=== PATIENT | male | born 1960 | race Caucasian/White ===

== ENCOUNTER → 2023-04-23 08:56 | Outpatient (REF) | payer BC, SELFPAY ==
[2023-04-25 21:14] LABS: 24 Hour Urine Total Volume 2500 mL; Ur Free Lambda Excretion/day 2.92 mg/d; Urine Collection Length 24 hr; Urine Free Kappa Excretion/Day 23.28 mg/d; Urine Free Kappa Light Chains 9.31 mg/L (0.00-32.90); Urine Free Lambda Light Chains 1.17 mg/L (0.00-3.79)
== END ==
LOC: REG 08:56
PROVIDERS: ATTENDING PHYSICIAN Psychiatry & Neurology Neurology; FAMILY PHYSICIAN Physician Assistant
DX: G62.9 Polyneuropathy, unspecified (principal); G61.81 Chronic inflammatory demyelinating polyneuritis; L93.0 Discoid lupus erythematosus
CPT/HCPCS: 81050; 83521; 84156; 86335

== ENCOUNTER 2023-05-04 05:57 | Day surgery (SDC) | payer BC, SELFPAY ==
[2023-04-28 10:52] LABS: Hematocrit 42.9 % (39.0-52.0); Hemoglobin 14.6 g/dL (13.0-18.0); Mean Corpuscular Hgb 31.3 pg (27.0-31.0); Mean Corpuscular Volume 92.1 fL (80.0-94.0); Mean Platelet Volume 10.9 fL (7.4-10.4); Platelet Count 170 10^3/uL (130-400); Red Blood Cell Count 4.66 10^6/uL (4.70-6.10); Red Cell Dist. Width 13.3 % (11.5-14.5); White Blood Cell Count 5.4 10^3/uL (4.8-10.8)
[2023-04-28 11:12] VITALS: BMI 26.6
[2023-05-04] VITALS (9 sets, daily range): BP systolic 148–167; BP diastolic 72–87; BMI 26.6
[2023-05-04] MEDS: TYLENOL 1000 MG PO (06:14)
[2023-05-04] MEDS: CELEBREX 200 MG PO (06:14)
[2023-05-04] MEDS: NORMOSOL-R 1000 IV (06:27)
[2023-05-04 06:29] LABS: Glucose - Point of Care 112 mg/dl (70-99)
[2023-05-04] MEDS: DILAUDID 0.5 MG IV ×2 (08:09→08:26)
== END 2023-05-04 09:35 | disposition home or self-care (01) ==
LOC: SDS 05:57
PROVIDERS: ATTENDING PHYSICIAN Orthopaedic Surgery; FAMILY PHYSICIAN Physician Assistant; OTHER PHYSICIAN Nuclear Medicine Nuclear Cardiology
DX: T84.093A Other mechanical complication of internal left knee prosthesis, initial encounter (principal); Y83.1 Surgical operation with implant of artificial internal device as the cause of abnormal reaction of the patient, or of later complication, without mention of misadventure at the time of the procedure
CPT/HCPCS: 20680; 36415; 73560; 76000; 82962; 85027

== ENCOUNTER → 2023-06-13 14:58 | Outpatient (REF) | payer BC, SELFPAY | LOC: DHCBS MAIN 14:58 | PROVIDERS: ATTENDING PHYSICIAN Nuclear Medicine Nuclear Cardiology; FAMILY PHYSICIAN Physician Assistant | DX: I45.10 Unspecified right bundle-branch block (principal); R00.0 Tachycardia, unspecified | CPT/HCPCS: 93306 ==

== ENCOUNTER → 2023-07-05 06:47 | Outpatient (REF) | payer BC, SELFPAY | LOC: PAVMRI 06:47 | PROVIDERS: ATTENDING PHYSICIAN Psychiatry & Neurology Neurology; FAMILY PHYSICIAN Physician Assistant | DX: M54.50 Low back pain, unspecified (principal) | CPT/HCPCS: 72148 ==

== ENCOUNTER 2023-09-21 11:14 | Inpatient (IN) | payer BC, SELFPAY ==
--- NOTE | 2023-08-31 10:00 | CM ---
Patient is scheduled for lumbar spine surgery on 09/21/23. Spoke with patient prior to surgery via telephone. Introduced role of the Orthopedic Navigator. Patient reports that he lives with his and in a two story home. There is one step to enter
and 10 steps to the second floor. There is a powder room on the first floor. He currently functions independently. He has a cane and back brace. He has had VN services through [facility]. PCP is Betsy Curry.
Discussed orthopedic program, post surgical plans and tentative plan for patient to return home when directed by surgeon. Patient is in agreement with tentative plan and will have support from his when he goes home.
Plan: Orthopedic Navigator will remain available to assist with the care of patient and will reassess discharge needs after surgery.
[2023-09-02 09:03] LABS: Hematocrit 44.7 % (39.0-52.0); Hemoglobin 14.9 g/dL (13.0-18.0); Mean Corp Hgb Conc. 33.3 g/dL (33.0-37.0); Mean Corpuscular Hgb 30.7 pg (27.0-31.0); Mean Corpuscular Volume 92.2 fL (80.0-94.0); Mean Platelet Volume 10.9 fL (7.4-10.4); Platelet Count 179 10^3/uL (130-400); Red Blood Cell Count 4.85 10^6/uL (4.70-6.10); Red Cell Dist. Width 13.1 % (11.5-14.5); White Blood Cell Count 6.8 10^3/uL (4.8-10.8)
[2023-09-02 10:05] VITALS: BMI 25.2
[2023-09-02 10:27] LABS: Glycohemoglobin (HgbA1c) 6.4 % (4.0-5.6)
[2023-09-02 10:41] LABS: ALT (SGPT) 42 U/L (0-50); AST (SGOT) 33 U/L (17-59); Albumin 4.7 g/dl (3.5-5.0); Alkaline Phosphatase 82 U/L (38-126); Blood Urea Nitrogen 24 mg/dl (9-20); Calcium 9.6 mg/dl (8.4-10.2); Carbon Dioxide 26 mmol/L (22-30); Chloride 103 mmol/L (98-107); Estimated Creatinine Clearance 78 ml/min; Glucose 111 mg/dl (70-99); HDL Cholesterol 47 mg/dl; LDL Cholesterol, Calculated 123 mg/dl; Potassium 4.7 mmol/L (3.5-5.1); Sodium 138 mmol/L (135-145); Total Bilirubin 0.7 mg/dl (0.2-1.3); Total Cholesterol 190 mg/dl (50-199); Total Protein 8.8 g/dl (6.3-8.2); Triglyceride 100 mg/dl (10-149); Very Low Density Lipoprotein 20 mg/dl (0-30); eGFR > 60.00
[2023-09-02 11:26] LABS: PSA, Total - Screen 2.52 ng/ml (0.0-4.0); TSH Reflex To Free T4 1.67 uIU/ml (0.47-4.68)
[2023-09-02 14:11] VITALS: BMI 25.2
[2023-09-21] VITALS (11 sets, daily range): BP systolic 30–178; BP diastolic 68–88
[2023-09-21] MEDS: TYLENOL PO ×2 (11:55→20:17)
[2023-09-21] MEDS: LYRICA 150 MG PO (11:56)
[2023-09-21] MEDS: SKELAXIN 800 MG PO (11:56)
[2023-09-21] MEDS: CELEBREX 200 MG PO (11:56)
[2023-09-21] MEDS: TYLENOL 1000 MG PO (11:56)
[2023-09-21] MEDS: NORMOSOL-R 1000 IV ×3 (12:00→19:00)
[2023-09-21 12:11] LABS: Glucose - Point of Care 109 mg/dl (70-99)
[2023-09-21 17:02] LABS: Glucose - Point of Care 160 mg/dl (70-99)
[2023-09-21] MEDS: DILAUDID 0.5 MG IV ×4 (17:08→18:22)
[2023-09-21] MEDS: DEMEROL 12.5 MG IV ×2 (17:23→17:37)
--- NOTE | 2023-09-21 19:00 | PTCARENOTE ---
Pt arrived on at 19:00, post L3-L4 Lami, L3-L5 PSF. PT AOx3 accompanied by his spouse. Bed in a low possition, call light in reach.
[2023-09-21] MEDS: NOVOLOG FLEXPEN-MODERATE RESISTANCE SC (20:16)
[2023-09-21] MEDS: DILAUDID PO (20:17)
[2023-09-21] MEDS: COLACE 100 MG PO (20:55)
[2023-09-21] MEDS: KLONOPIN 0.5 MG PO (20:55)
[2023-09-21] MEDS: SENOKOT 17.2 MG PO (20:55)
[2023-09-21] MEDS: NORMOSOL-R IV (21:02)
[2023-09-21] MEDS: ANCEF 5 IV (22:05)
[2023-09-21] MEDS: PEPCID 20 MG PO (22:05)
[2023-09-21] MEDS: TOPROL XL 25 MG PO (22:06)
[2023-09-21 22:13] LABS: Glucose - Point of Care 247 mg/dl (70-99)
[2023-09-21] MEDS: COZAAR 25 MG PO (22:13)
[2023-09-21] MEDS: DILAUDID 4 MG PO (22:14)
[2023-09-22] MEDS: LYRICA 75 MG PO ×2 (00:09→11:13)
[2023-09-22] MEDS: TYLENOL 1000 MG PO ×3 (00:09→11:13)
[2023-09-22] MEDS: DILAUDID 4 MG PO ×4 (01:02→13:24)
--- NOTE | 2023-09-22 03:00 | PTCARENOTE ---
Pt retaining urine after voiding 600 mL, SC pt output 1800 included by PCT as voided
[2023-09-22 03:25] VITALS: BP 138/65
[2023-09-22] MEDS: SKELAXIN 800 MG PO (03:35)
[2023-09-22] MEDS: ANCEF 5 IV (05:18)
[2023-09-22] MEDS: NORMOSOL-R 1000 IV (05:21)
[2023-09-22 06:16] VITALS: BMI 26.7
[2023-09-22 06:24] LABS: Hemoglobin 12.4 g/dL (13.0-18.0)
[2023-09-22 07:02] LABS: Blood Urea Nitrogen 23 mg/dl (9-20); Carbon Dioxide 23 mmol/L (22-30); Chloride 102 mmol/L (98-107); Estimated Creatinine Clearance 87 ml/min; Glucose 215 mg/dl (70-99); Potassium 4.6 mmol/L (3.5-5.1); Sodium 135 mmol/L (135-145); eGFR > 60.00
[2023-09-22 07:37] LABS: Glucose - Point of Care 200 mg/dl (70-99)
[2023-09-22 07:53] VITALS: BP 138/73
--- NOTE | 2023-09-22 08:01 | W.DS.TRANS ---
DC Summary - Verifier
-
Discharge Instructions:
Instructions:
Stand-Alone Forms: [facility]
Changes to Home Medications: No
Discharge Medications:
DC Medications w/original date entered in [employer]
acetaminophen 500 mg tablet (Tylenol Extra Strength) 1,000 mg PO PRN PRN pain 09/04/21
clonazepam 1 mg tablet 0.5 mg PO BID Mental Health/Anxiety 09/04/21
losartan 25 mg tablet 25 mg PO HS Blood Pressure 05/02/23
cyanocobalamin (vitamin B-12) 1,000 mcg/mL injection solution 1,000 mcg SC QMONTH Supplement 09/16/23
famotidine 20 mg tablet 20 mg PO HS Gastrointestinal Issue 09/16/23
immune globulin,gamma(IgG)klhw 10 gram/50 mL(20%)subcut solution (Xembify) 50 g SC UGALDE 09/16/23
lamotrigine 250 mg tablet,extended release 24 hr (Lamictal XR) 250 mg PO DAILY 09/16/23
metoprolol succinate 25 mg tablet,extended release 24 hr 25 mg PO HS Heart Disease/Condition 09/16/23
hydromorphone 4 mg tablet (Dilaudid) 4 mg PO Q6H PRN pain 09/21/23
Home Medication Changes
Pending Results: No
--- NOTE | 2023-09-22 08:01 | W.PN.SP ---
Today's Communication / Plan
-
s/p lami fusion
PT
MAy need bello to go home
PT
Pain mgmt through his pain mgmt doctor
Subjective / Objective
Subjective Data
Overall doing ok. Denies weakness.
Chronic pain issues
Trouble voiding likely secondary to that.
Objective Data
Vital Signs
Temp Pulse Resp BP Pulse Ox
97.6 F 94 18 138/73 95
09/22/23 07:53 09/22/23 07:53 09/22/23 07:53 09/22/23 07:53 09/22/23 07:53
Intake and Output
09/21/23 09/22/23 09/23/23
06:59 06:59 06:59
Intake Total 2480 / 2480
Output Total 2505 / 2505
Balance -25 / -25
Intake:
Oral fluids 1080 / 1080
IV fluids (Total) 1400 / 1400
Normosol 200 / 200
Output:
Drain Output (Total) 80 / 80
Right Lower Back Hemovac 80 / 80
Urine, Voided 2425 / 2425
Lab Data
09/22/23 05:05
09/22/23 05:05
Physical Exam
-
NO focal deficits. Generally limited by pain
[2023-09-22] MEDS: NOVOLOG FLEXPEN-MODERATE RESISTANCE 3 UNITS SC (08:10)
[2023-09-22] MEDS: KLONOPIN 0.5 MG PO (08:11)
[2023-09-22] MEDS: SENOKOT 17.2 MG PO (08:11)
[2023-09-22] MEDS: COLACE 100 MG PO (08:11)
--- NOTE | 2023-09-22 09:36 | CM ---
Reviewed chart and held rounds with PT, OT and RN. Patient had planned lumbar spine surgery with Dr. Newman on 09/20. Met with patient at bedside. Confirmed information previously obtained for assessment and discussed discharge plans. Patient continues
to plan to return home at discharge. He will have support from his when he goes home. Reviewed that he will work with PT/OT this morning and that discharge needs will depend on his functional status. However, no needs currently identified.
Patient has a cane, rolling walker, shower seat and commode.
Patient will use [facility] pharmacy for discharge prescriptions.
[2023-09-22 10:25] VITALS: BP 137/70; PULSE 88
[2023-09-22 11:19] VITALS: BP 150/73
[2023-09-22] MEDS: LASIX 10 MG IV (11:19)
[2023-09-22] MEDS: FLOMAX 0.8 MG PO (11:19)
[2023-09-22] MEDS: ProAmatine 5 MG PO (11:19)
[2023-09-22 12:10] LABS: Glucose - Point of Care 171 mg/dl (70-99)
[2023-09-22 12:12] VITALS: BP 138/69; PULSE 75; O2SAT 95
[2023-09-22] MEDS: NOVOLOG FLEXPEN-MODERATE RESISTANCE 1 UNITS SC (12:28)
--- NOTE | 2023-09-22 13:16 | W.PN.ORTHO ---
Today's Communication / Plan
-
d/c
Assessment
.
Distal Motor Intact: Yes
Dressing:
Clean, dry and intact.
Assessment:
BPH/Urinary retention-resolved, s/p Flomax, Lasix low dose
NIDDM-diet controlled-some hyperglycemia post-op-abx ppx for infection prevention w/ carb control advised
[id number] oac-NSR, HR stable
Plan
.
Surgery / Date: L3-4 lami-psf w/ inst Dr. Newman 09/21/23
Activity:
Out of bed.
PT/OT
Discharge Plan: Home
Subjective
.
.:
Patient resting comfortably.
Vital Signs and Labs
.
Vital Signs and Labs:
Lab Results
09/22/23 05:05
09/22/23 05:05
Temp Pulse Resp BP Pulse Ox
97.8 F 75 18 150/73 96
09/22/23 11:19 09/22/23 11:19 09/22/23 11:19 09/22/23 11:19 09/22/23 11:19
Physical Exam
-
HEENT: No pallor, cyanosis, or jaundice. Throat clear.
NECK: Supple. No JVD.
RESPIRATORY: Lungs clear to auscultation.
CVS: S1, S2 normal. RRR.� No murmur, rub or gallop.
ABDOMEN: Soft, non-tender. No distension. BS+/normal.
EXTREMITIES: strength equal, no calf pain with palpation
SINTERING PRESS OPERATOR: AOx3. No focal deficits. batch unit treater grossly intact
--- NOTE | 2023-09-22 13:27 | W.DS.TRANS ---
DC Summary - Cardiac Rn
-
Discharge Instructions:
Discharge Diagnosis/Procedures L3-4 lami-psf w/ inst Dr. Newman 09/21/23
Diet Diabetic, Carb Controlled
Activity No strenuous activity
Driving Restrictions No driving
Instructions:
Stand-Alone Forms: [facility]
Changes to Home Medications: Yes
Discharge Medications:
DC Medications w/original date entered in [employer]
clonazepam 1 mg tablet 0.5 mg PO BID Mental Health/Anxiety 09/04/21
losartan 25 mg tablet 25 mg PO HS Blood Pressure 05/02/23
cyanocobalamin (vitamin B-12) 1,000 mcg/mL injection solution 1,000 mcg SC QMONTH Supplement 09/16/23
famotidine 20 mg tablet 20 mg PO HS Gastrointestinal Issue 09/16/23
immune globulin,gamma(IgG)klhw 10 gram/50 mL(20%)subcut solution (Xembify) 50 g SC UGALDE 09/16/23
lamotrigine 250 mg tablet,extended release 24 hr (Lamictal XR) 250 mg PO DAILY 09/16/23
metoprolol succinate 25 mg tablet,extended release 24 hr 25 mg PO HS Heart Disease/Condition 09/16/23
hydromorphone 4 mg tablet (Dilaudid) 4 mg PO Q6H PRN pain 09/21/23
Saccharomyces boulardii 250 mg capsule (Florastor) 250 mg PO BID #1 cap 09/22/23
acetaminophen 500 mg tablet (Tylenol Extra Strength) 1,000 mg (2 x 500 mg) PO QID #0 tabs 09/22/23
cephalexin 500 mg capsule 500 mg PO QID infection prevention #20 caps 09/22/23
docusate sodium 100 mg capsule (Colace) 100 mg PO BID stool softner #1 cap 09/22/23
gabapentin 300 mg capsule 300 mg PO HS sleep/pain #10 caps 09/22/23
magnesium hydroxide 400 mg/5 mL oral suspension (Milk of Magnesia) 30 ml PO HS PRN Constipation #1 mL 09/22/23
sennosides 8.6 mg tablet (Senokot) 17.2 mg (2 x 8.6 mg) PO BID laxative #2 tabs 09/22/23
tamsulosin 0.4 mg capsule 0.4 mg PO HS urinary retention #7 caps 09/22/23
Xarelto 20mg hs
Home Medication Changes
cephalexin 500 mg capsule 500 mg PO QID infection prevention #20 caps 09/22/23
gabapentin 300 mg capsule 300 mg PO HS sleep/pain #10 caps 09/22/23
tamsulosin 0.4 mg capsule 0.4 mg PO HS urinary retention #7 caps 09/22/23
Xarelto 20mg hs-hold until 09/26/23
Pending Results: No
[2023-09-22 15:11] VITALS: BP 147/69
== END 2023-09-22 15:35 | disposition home or self-care (01) | DRG 460 ==
LOC: 2 SOUTH 11:14
PROVIDERS: Physician Assistant Medical; ADMITTING PHYSICIAN Orthopaedic Surgery Orthopaedic Surgery of the Spine; FAMILY PHYSICIAN Physician Assistant
PROC: 00NY0ZZ Release Lumbar Spinal Cord, Open Approach (ICD-10-PCS; 2023-09-21)
PROC: 0SG10K1 Fusion of 2 or more Lumbar Vertebral Joints with Nonautologous Tissue Substitute, Posterior Approach, Posterior Column, Open Approach (ICD-10-PCS; 2023-09-21)
PROC: 01NB0ZZ Release Lumbar Nerve, Open Approach (ICD-10-PCS; 2023-09-21)
PROC: 0SP00AZ Removal of Interbody Fusion Device from Lumbar Vertebral Joint, Open Approach (ICD-10-PCS; 2023-09-21)
DX: M48.061 Spinal stenosis, lumbar region without neurogenic claudication (principal); N40.1 Benign prostatic hyperplasia with lower urinary tract symptoms; I48.0 Paroxysmal atrial fibrillation; R33.8 Other retention of urine; E11.65 Type 2 diabetes mellitus with hyperglycemia; I10 Essential (primary) hypertension; E11.42 Type 2 diabetes mellitus with diabetic polyneuropathy; E78.5 Hyperlipidemia, unspecified; F17.210 Nicotine dependence, cigarettes, uncomplicated; I45.10 Unspecified right bundle-branch block; G47.33 Obstructive sleep apnea (adult) (pediatric); F41.9 Anxiety disorder, unspecified; Z82.49 Family history of ischemic heart disease and other diseases of the circulatory system
CPT/HCPCS: 36415; 72100; 76000; 80048; 80053; 80061; 82962; 83036; 84443; 85014; 85018; 85027; 87070; 93005; 97163; 97166; G0103

== ENCOUNTER 2023-11-11 12:59 | Outpatient (RCR) | payer BC, SELFPAY | END 2023-11-11 23:59 | disposition home or self-care (01) | LOC: RPT 12:59 | PROVIDERS: ATTENDING PHYSICIAN Orthopaedic Surgery Orthopaedic Surgery of the Spine; FAMILY PHYSICIAN Physician Assistant | DX: Z47.89 Encounter for other orthopedic aftercare (principal); M48.061 Spinal stenosis, lumbar region without neurogenic claudication | CPT/HCPCS: 97110; 97112; 97162 ==

== ENCOUNTER 2023-12-07 10:18 | Outpatient (RCR) | payer BC, SELFPAY | END 2023-12-07 23:59 | disposition home or self-care (01) | LOC: RPT 10:18 | PROVIDERS: ATTENDING PHYSICIAN Orthopaedic Surgery Orthopaedic Surgery of the Spine; FAMILY PHYSICIAN Physician Assistant | DX: M48.061 Spinal stenosis, lumbar region without neurogenic claudication (principal); Z73.6 Limitation of activities due to disability | CPT/HCPCS: 97010; 97110; 97112 ==

== ENCOUNTER → 2023-12-14 10:49 | Outpatient (REF) | payer BC, SELFPAY | LOC: HWRAD 10:49 | PROVIDERS: ATTENDING PHYSICIAN Physician Assistant Surgical; FAMILY PHYSICIAN Physician Assistant | DX: M48.062 Spinal stenosis, lumbar region with neurogenic claudication (principal); M54.50 Low back pain, unspecified | CPT/HCPCS: 72131 ==

== ENCOUNTER 2024-01-02 11:51 | Emergency (ER) | payer BC, SELFPAY ==
[2024-01-02 11:59] VITALS: BP 126/69
[2024-01-02 12:33] VITALS: BMI 25.7
[2024-01-02 12:34] VITALS: BP 139/71
--- NOTE | 2024-01-02 12:44 | ED.GENMED ---
History of Present Illness
General
Chief Complaint: Heart Rate Problem
Time Seen by Provider: 01/02/24 12:28
History of Present Illness
History of Present Illness:
63-year-old male presents to the emergency department for evaluation of heart palpitations and shortness of breath that began last night. Began while he was walking. States his heart rate was variable between 70 and 150, his Apple Watch was
detecting A-fib. Last night he took an extra dose of 25 mg metoprolol succinate. This morning symptoms continued thus he came to the emergency department but noted resolution of symptoms on arrival to the ER. Currently denies any chest pain or
shortness of breath. He is not currently anticoagulated
Past History
Past History
ED Past Medical History: Asthma, HTN, NIDDM and Other
ED Past Surgical History: Orthopedic
Social History
Tobacco: Smoker
Alcohol: Occasional
Drug: None
Personal:
Living: with family
Employment: Employed
Family History
Family History: Other
Review of Systems
Review of Systems
Allergies reviewed?: Yes
All Other Systems: ROS reviewed and negative except as documented in HPI and ROS
Phy Exam
Physical Exam
Physical Exam:
GEN: Well appearing, NAD, WDWN
HEENT: Oral mucosa moist, no scleral icterus
Cardiac: Regular rate and rhythm, no murmurs
Lung: No respiratory distress, no tachypnea, lungs clear to auscultation bilaterally
MSK: No gross deformity or injuries
Skin: Good color, no pallor or jaundice, no rashes
Neuro: AO x3, moves all extremities freely
Psych: Calm, cooperative
Course
Orders/Labs/Results
Orders:
Orders
01/02/24 11:52
Electrocardiogram (*1) Urgent
Reason for Study: Chest Pain
EKG- Treatment ONCE
Vital Signs
Initial and Last Documented VS:
Initial Vital Signs
Temp Pulse Resp BP Pulse Ox
97.9 F 86 18 126/69 97
01/02/24 11:59 01/02/24 11:59 01/02/24 11:59 01/02/24 11:59 01/02/24 11:59
Last Documented Vital Signs
Temp Pulse Resp BP Pulse Ox
97.9 F 78 18 139/71 98
01/02/24 11:59 01/02/24 12:45 01/02/24 12:45 01/02/24 12:34 01/02/24 12:45
MDM/Problems Addressed
MDM/Problems Addressed:
Patient nandini in normal sinus rhythm in the emergency department. Will increase his metoprolol to 50 mg daily, given that he has had 2 bouts of documented A-fib in the past 2 to 3 months we will start him on oral anticoagulants and advise close
cardiology follow-up
Comment
Comment:
EKG independently interpreted by me shows normal sinus rhythm at a rate of 80 with a right bundle branch block
*Critical Care Note
Total Time (30-74mins, 75-104mins- exclusive of procedures): Not Applicable
ED Attending Note
-
Portions of this chart may have been created with voice recognition software.� Occasional wrong word or��sound alike� substitutions may have occurred due to the inherent limitations of voice recognition software.
Discharge Plan
Departure
Patient Disposition: Home (Routine Discharge)
Date of Disposition: 01/02/24
Time of Disposition: 12:54
Patient with high blood pressure during this ER visit?: No
Discharge Problem:
Paroxysmal A-fib
Instructions: Atrial Fibrillation (DC)
Prescriptions:
New
metoprolol succinate 50 mg tablet extended release 24 hr
50 mg PO DAILY Qty: 30 0RF
Eliquis 5 mg tablet
5 mg PO BID Qty: 60 0RF
Discontinued
metoprolol succinate 25 mg Tablet Extended Release 24 Hr
25 mg PO HS
Xembify 10 gram/50 mL (20 %) Solution
50 g SC UGALDE
Xarelto 20 mg Tablet
20 mg PO QPM
No Action
clonazepam 1 MG tablet
0.5 mg PO BID
losartan 25 mg Tablet
25 mg PO HS
famotidine 20 mg Tablet
20 mg PO HS
lamotrigine [Lamictal XR] 250 mg Tablet Extended Release 24hr
250 mg PO DAILY
cyanocobalamin (vitamin B-12) 1,000 mcg/mL Solution
1,000 mcg SC QMONTH
hydromorphone [Dilaudid] 4 mg Tablet
4 mg PO Q6H PRN (Reason: pain)
sennosides [Senokot] 8.6 mg tablet
17.2 mg PO BID Qty: 2 0RF
magnesium hydroxide [Milk of Magnesia] 400 mg/5 mL suspension
30 ml PO HS PRN (Reason: Constipation) Qty: 1 0RF
cephalexin 500 mg capsule
500 mg PO QID Qty: 20 0RF
docusate sodium [Colace] 100 mg capsule
100 mg PO BID Qty: 1 0RF
gabapentin 300 mg capsule
300 mg PO HS Qty: 10 0RF
Saccharomyces boulardii [Florastor] 250 mg capsule
250 mg PO BID Qty: 1 0RF
acetaminophen [Tylenol Extra Strength] 500 MG tablet
1,000 mg PO QID Qty: 0 0RF
Patient Comments:
hasnt taken in months
tamsulosin 0.4 mg capsule
0.4 mg PO HS Qty: 7 0RF
Rx Instructions:
begin 09/23/23 pm
Referrals:
Betsy Curry PA-C [Family Provider] -
Interventions
Interventions:
*Risk Screen - Suicide Last Done: 01/02/24 11:59
*Neglect/Abuse Screening Last Done: 01/02/24 11:59
ED- Fall Risk Assessment Last Done: 01/02/24 13:09
*ED COVID-19 Vaccine History Last Done: 01/02/24 11:59
*Nursing Disposition Last Done: 01/02/24 13:09
ED- Cardiac Assessment Last Done: 01/02/24 12:40
ED- Pulmonary Assessment Last Done: 01/02/24 12:40
Discharge Date and Time
Discharge Date/Time: 01/02/24 13:10
Print Language: INDONESIAN
== END 2024-01-02 13:10 | disposition home or self-care (01) ==
LOC: EMR 11:51
PROVIDERS: EMERGENCY PHYSICIAN Emergency Medicine; FAMILY PHYSICIAN Physician Assistant
DX: I48.0 Paroxysmal atrial fibrillation (principal); J45.909 Unspecified asthma, uncomplicated; I10 Essential (primary) hypertension; E11.9 Type 2 diabetes mellitus without complications; F17.200 Nicotine dependence, unspecified, uncomplicated
CPT/HCPCS: 99283; 93005

== ENCOUNTER 2024-01-05 11:53 | Outpatient (RCR) | payer BC, SELFPAY | END 2024-01-05 23:59 | disposition home or self-care (01) | LOC: RPT 11:53 | PROVIDERS: ATTENDING PHYSICIAN Physician Assistant Medical; FAMILY PHYSICIAN Physician Assistant | DX: M48.062 Spinal stenosis, lumbar region with neurogenic claudication (principal); Z73.6 Limitation of activities due to disability | CPT/HCPCS: 97110; 97112; 97162 ==

== ENCOUNTER → 2024-01-24 10:41 | Outpatient (REF) | payer BC, SELFPAY | LOC: PAVMRI 10:41 | PROVIDERS: ATTENDING PHYSICIAN Orthopaedic Surgery Orthopaedic Surgery of the Spine; FAMILY PHYSICIAN Physician Assistant | DX: M48.062 Spinal stenosis, lumbar region with neurogenic claudication (principal) | CPT/HCPCS: 72158; A9575 ==

== ENCOUNTER 2024-01-25 09:59 | Outpatient (RCR) | payer BC, SELFPAY | END 2024-01-25 23:59 | disposition home or self-care (01) | LOC: RPT 09:59 | PROVIDERS: ATTENDING PHYSICIAN Physician Assistant Medical; FAMILY PHYSICIAN Physician Assistant | DX: M48.062 Spinal stenosis, lumbar region with neurogenic claudication (principal); Z73.6 Limitation of activities due to disability | CPT/HCPCS: 97110; 97112; 97116; 97530 ==

== ENCOUNTER → 2024-03-01 07:06 | Outpatient (REF) | payer BC, SELFPAY ==
[2024-03-01 08:11] LABS: Blood Urea Nitrogen 19 mg/dl (9-20); Calcium 8.9 mg/dl (8.4-10.2); Carbon Dioxide 28 mmol/L (22-30); Chloride 101 mmol/L (98-107); Glucose 129 mg/dl (70-99); Potassium 4.4 mmol/L (3.5-5.1); Sodium 137 mmol/L (135-145); eGFR > 60.00
[2024-03-01 10:16] LABS: Lithium 0.3 mmol/L (0.6-1.2)
== END ==
LOC: REG 07:06
DX: F06.31 Mood disorder due to known physiological condition with depressive features (principal)
CPT/HCPCS: 36415; 80048; 80178

== ENCOUNTER → 2024-04-17 07:11 | Outpatient (REF) | payer BC, SELFPAY ==
[2024-04-17 08:59] LABS: Lithium 0.5 mmol/L (0.6-1.2)
== END ==
LOC: REG 07:11
PROVIDERS: ATTENDING PHYSICIAN Nurse Practitioner Psychiatric/Mental Health
DX: F39 Unspecified mood [affective] disorder (principal)
CPT/HCPCS: 36415; 80178

== ENCOUNTER 2024-05-07 11:55 | Outpatient (RCR) | payer BC, SELFPAY | END 2024-05-07 23:59 | disposition home or self-care (01) | LOC: RPT 11:55 | PROVIDERS: ATTENDING PHYSICIAN Orthopaedic Surgery Orthopaedic Surgery of the Spine; FAMILY PHYSICIAN Physician Assistant | DX: M48.062 Spinal stenosis, lumbar region with neurogenic claudication (principal); Z73.6 Limitation of activities due to disability | CPT/HCPCS: 97110; 97112; 97162; 97530 ==

== ENCOUNTER → 2024-05-21 06:32 | Outpatient (REF) | payer BC, SELFPAY ==
[2024-05-21 08:07] LABS: Blood Urea Nitrogen 14 mg/dl (9-20); Calcium 9.1 mg/dl (8.4-10.2); Carbon Dioxide 27 mmol/L (22-30); Chloride 103 mmol/L (98-107); Glucose 119 mg/dl (70-99); Potassium 4.5 mmol/L (3.5-5.1); Sodium 138 mmol/L (135-145); eGFR > 60.00
== END ==
LOC: REG 06:32
PROVIDERS: ATTENDING PHYSICIAN Nurse Practitioner Psychiatric/Mental Health; FAMILY PHYSICIAN Physician Assistant
DX: F39 Unspecified mood [affective] disorder (principal)
CPT/HCPCS: 36415; 80048; 80178

== ENCOUNTER 2024-05-29 10:58 | Outpatient (RCR) | payer BC, SELFPAY | END 2024-05-29 12:17 | disposition home or self-care (01) | LOC: RPT 10:58 | PROVIDERS: ATTENDING PHYSICIAN Orthopaedic Surgery Orthopaedic Surgery of the Spine; FAMILY PHYSICIAN Physician Assistant | DX: M48.062 Spinal stenosis, lumbar region with neurogenic claudication (principal); Z73.6 Limitation of activities due to disability; R26.89 Other abnormalities of gait and mobility; Z98.1 Arthrodesis status | CPT/HCPCS: 97110; 97112; 97530 ==

== ENCOUNTER 2024-06-27 06:36 | Emergency (ER) | payer BC, SELFPAY ==
[2024-06-27 06:39] VITALS: BP 124/70
[2024-06-27 06:52] VITALS: BP 115/69
--- NOTE | 2024-06-27 06:58 | ED.GENMED ---
History of Present Illness
General
Chief Complaint: Heart Rate Problem
Source: patient
Time Seen by Provider: 06/27/24 06:45
History of Present Illness
History of Present Illness:
This patient is a 63-year-old male who states that he was alerted that he was in A-fib at approximately 6 PM last night. He otherwise does not have symptoms to suggest that he is in A-fib. He denies palpitations, dizziness, chest pain or pressure,
dyspnea, diaphoresis, nausea, vomiting, new neck or back pain, or other symptoms. Patient has a longstanding history of neuropathy and pain which is unchanged. He noted that his phone/watch continued to alert him throughout the night with a
variable heart rate between 140s and as low as 60. He normally takes metoprolol 25 mg every night. He took it last night as usual, and then a few hours later took an extra 25 mg. He has not taken metoprolol this morning. He was concerned because
he remains in atrial fibrillation. Patient is fully anticoagulated and compliant with his medications.
Past History
Past History
ED Past Medical History: Arrthythmia, Asthma, HTN, NIDDM, Other (Neuropathy) and Other
ED Past Surgical History: Orthopedic
Social History
Tobacco: Non-smoker
Alcohol: Occasional
Drug: None
Personal:
Living: with family
Employment: Employed
Family History
Family History: Other
Phy Exam
Physical Exam
Physical Exam:
GENERAL: Alert , in no apparent distress
EYE: pupils equal and reactive
NECK: Supple, no significant adenopathy.
ENT: o/p clr, mmm.
CARDIAC: Irregularly irregular
LUNGS: Clear breath sounds bilaterally, no acute respiratory distress,
ABDOMEN: Soft, without focal tenderness, no r/g, no cvat
NEUROLOGICAL: Alert and oriented, no focal neuro deficits
SKIN: Warm and dry, skin intact.
MUSCULOSKELETAL: No edema, well perfused.
PSYCH: Normal and appropriate interaction.
Course
Orders/Labs/Results
Orders:
Orders
06/27/24 06:42
ECG [Electrocardiogram (*1)] Urgent
Reason for Study: Atrial Fibrillation
EKG- Treatment ONCE
06/27/24 07:10
Basic Metabolic Panel Urgent
Complete Blood Count/No Diff Urgent
Abnormal Lab Results
06/27/24
07:10
MCH 31.2 H pg
(27.0-31.0)
Glucose 148 H mg/dl
(70-99)
06/27/24 07:10
06/27/24 07:10
Vital Signs
Initial and Last Documented VS:
Initial Vital Signs
Temp Pulse Resp BP Pulse Ox
97.4 F 100 20 124/70 100
06/27/24 06:39 06/27/24 06:39 06/27/24 06:39 06/27/24 06:39 06/27/24 06:39
Last Documented Vital Signs
Temp Pulse Resp BP Pulse Ox
97.4 F 96 20 111/77 97
06/27/24 06:39 06/27/24 08:00 06/27/24 08:00 06/27/24 08:00 06/27/24 08:00
*Critical Care Note
Total Time (30-74mins, 75-104mins- exclusive of procedures): Not Applicable
Update Note
Update Note:
Patient presents to the Emergency Department with __A-fib that is alerted on device
Number and Complexity of Problems Addressed at the Encounter
� Chronic conditions affecting care:
� Acute Exacerbation and/or Progression of Chronic Illness:
� Differential Diagnosis includes: But not limited to A-fib, a flutter, SVT, PVCs, etc. etc.
Amount and/or Complexity of Data to be Reviewed and Analyzed
� I performed an independent evaluation of and my interpretation is:
EKG: Read by me, A-fib, right bundle branch block, no acute ischemia, unchanged from prior December 2023
CT:
Xrays:
Laboratory Studies: Generally unremarkable
Other:
� Review of other/old records reveals: Discharge summary reviewed when patient had laminectomy September 2023
� Clinical information was obtained by an independent historian:
� Prescriptions/Medications Considered but not given:
� Further testing considered but not performed:
Risk of Complications and/or Morbidity or Mortality of Patient Management
� Social determinants of health affecting care:
� Discussion with other providers (PCP, Hospitalists, Consultants, etc):
� Escalation of care including admission/observation vs risk of discharge considered: 8:34 AM patient remains in a rate controlled A-fib, asymptomatic, pleasant, well-appearing. No concerning findings on history physical or
workup here. I did reach out to his video camera operator, Dr. NIMA MALDONADO, but have not heard back. My question was concerning consideration for increasing his metoprolol dosing. I have instructed patient to contact him today for further advisement.
ED Attending Note
-
Portions of this chart may have been created with voice recognition software.� Occasional wrong word or��sound alike� substitutions may have occurred due to the inherent limitations of voice recognition software.
Discharge Plan
Departure
Patient Disposition: Home (Routine Discharge)
Date of Disposition: 06/27/24
Time of Disposition: 08:35
Patient with high blood pressure during this ER visit?: Yes
Condition: Good
Discharge Problem:
Atrial fibrillation
Instructions: Atrial Fibrillation (DC), BLOOD PRESSURE
Prescriptions:
No Action
clonazepam 1 MG tablet
0.5 mg PO BID
losartan 25 mg Tablet
25 mg PO HS
famotidine 20 mg Tablet
20 mg PO HS
lamotrigine [Lamictal XR] 250 mg Tablet Extended Release 24hr
250 mg PO DAILY
cyanocobalamin (vitamin B-12) 1,000 mcg/mL Solution
1,000 mcg SC QMONTH
hydromorphone [Dilaudid] 4 mg Tablet
4 mg PO Q6H PRN (Reason: pain)
sennosides [Senokot] 8.6 mg tablet
17.2 mg PO BID Qty: 2 0RF
magnesium hydroxide [Milk of Magnesia] 400 mg/5 mL suspension
30 ml PO HS PRN (Reason: Constipation) Qty: 1 0RF
cephalexin 500 mg capsule
500 mg PO QID Qty: 20 0RF
docusate sodium [Colace] 100 mg capsule
100 mg PO BID Qty: 1 0RF
gabapentin 300 mg capsule
300 mg PO HS Qty: 10 0RF
Saccharomyces boulardii [Florastor] 250 mg capsule
250 mg PO BID Qty: 1 0RF
acetaminophen [Tylenol Extra Strength] 500 MG tablet
1,000 mg PO QID Qty: 0 0RF
Patient Comments:
hasnt taken in months
tamsulosin 0.4 mg capsule
0.4 mg PO HS Qty: 7 0RF
Rx Instructions:
begin 09/22/ pm
metoprolol succinate 50 mg tablet extended release 24 hr
50 mg PO DAILY Qty: 30 0RF
Eliquis 5 mg tablet
5 mg PO BID Qty: 60 0RF
Referrals:
Betsy Curry PA-C [Family Provider] -
Filemon Vogel DO [Active] - Follow up in 2-3 days
Activity Restrictions/Additional Instructions:
PLEASE CONTACT YOUR SHOT COAT TENDER REGARDING FURTHER GUIDANCE FOR YOUR METOPROLOL DOSING. IF YOU DEVELOP CHEST PAIN, PALPITATIONS, DIZZINESS, SHORTNESS OF BREATH, OR OTHER WORRISOME SIGNS, PLEASE RETURN TO THE ER IMMEDIATELY.
Interventions
Interventions:
*Risk Screen - Suicide Last Done: 06/27/24 06:39
*General Assessment Last Done: 06/27/24 07:05
*Neglect/Abuse Screening Last Done: 06/27/24 06:39
*ED- Fall Risk Assessment Last Done: 06/27/24 07:05
*ED COVID-19 Vaccine History Last Done: 06/27/24 07:05
ED- Cardiac Assessment Last Done: 06/27/24 07:05
ED- Pulmonary Assessment Last Done: 06/27/24 07:05
Discharge Date and Time
Print Language: WALLISIAN
[2024-06-27 07:00] VITALS: BP 113/66
[2024-06-27 07:05] VITALS: BMI 24.4
[2024-06-27 07:21] LABS: Hematocrit 44.1 % (39.0-52.0); Hemoglobin 14.9 g/dL (13.0-18.0); Mean Corp Hgb Conc. 33.8 g/dL (33.0-37.0); Mean Corpuscular Hgb 31.2 pg (27.0-31.0); Mean Corpuscular Volume 92.5 fL (80.0-94.0); Mean Platelet Volume 10.2 fL (7.4-10.4); Platelet Count 215 10^3/uL (130-400); Red Blood Cell Count 4.77 10^6/uL (4.70-6.10); Red Cell Dist. Width 13.1 % (11.5-14.5); White Blood Cell Count 9.4 10^3/uL (4.8-10.8)
[2024-06-27 07:43] LABS: Blood Urea Nitrogen 19 mg/dl (9-20); Calcium 9.1 mg/dl (8.4-10.2); Carbon Dioxide 24 mmol/L (22-30); Chloride 106 mmol/L (98-107); Estimated Creatinine Clearance 81 ml/min; Glucose 148 mg/dl (70-99); Sodium 139 mmol/L (135-145); eGFR > 60.00
[2024-06-27 08:00] VITALS: BP 111/77
[2024-06-27 08:48] VITALS: BP 119/71
== END 2024-06-27 09:11 | disposition home or self-care (01) ==
LOC: EMR 06:36
PROVIDERS: EMERGENCY PHYSICIAN Emergency Medicine; FAMILY PHYSICIAN Physician Assistant
DX: I48.91 Unspecified atrial fibrillation (principal); J45.909 Unspecified asthma, uncomplicated; I10 Essential (primary) hypertension; E11.9 Type 2 diabetes mellitus without complications; G62.9 Polyneuropathy, unspecified; Z79.899 Other long term (current) drug therapy
CPT/HCPCS: 99283; 80048; 85027; 93005

== ENCOUNTER → 2024-06-29 07:48 | Outpatient (REF) | payer BC, SELFPAY ==
[2024-06-29 09:01] LABS: % Basophils 0.6 % (0-2); % Eosinophils 5.4 % (0-6); % Immature Granulocytes 0.5 % (0-0.5); % Lymphocytes 22.6 % (20.5-51.1); % Monocytes 10.3 % (1.7-9.3); % Neutrophils 60.6 % (42.2-75.2); Absolute Basophils 0.1 10^3/uL (0-0.2); Absolute Eosinophils 0.5 10^3/uL (0-0.7); Absolute Monocytes 0.9 10^3/uL (0.1-0.6); Absolute Neutrophils 5.3 10^3/uL (1.4-6.5); Hematocrit 43.9 % (39.0-52.0); Hemoglobin 14.1 g/dL (13.0-18.0); Mean Corp Hgb Conc. 32.1 g/dL (33.0-37.0); Mean Corpuscular Hgb 30.6 pg (27.0-31.0); Mean Corpuscular Volume 95.2 fL (80.0-94.0); Mean Platelet Volume 10.4 fL (7.4-10.4); Nucleated Red Blood Cells % 0 % (-); Platelet Count 190 10^3/uL (130-400); Red Blood Cell Count 4.61 10^6/uL (4.70-6.10); Red Cell Dist. Width 13.2 % (11.5-14.5); White Blood Cell Count 8.7 10^3/uL (4.8-10.8)
[2024-06-29 09:45] LABS: ALT (SGPT) 26 U/L (0-50); AST (SGOT) 22 U/L (17-59); Albumin 4.1 g/dl (3.5-5.0); Alkaline Phosphatase 91 U/L (38-126); Blood Urea Nitrogen 17 mg/dl (9-20); Calcium 9.6 mg/dl (8.4-10.2); Carbon Dioxide 28 mmol/L (22-30); Chloride 106 mmol/L (98-107); Glucose 122 mg/dl (70-99); HDL Cholesterol 46 mg/dl; LDL Cholesterol, Calculated 104 mg/dl; Potassium 4.6 mmol/L (3.5-5.1); Sodium 142 mmol/L (135-145); Total Bilirubin 0.4 mg/dl (0.2-1.3); Total Cholesterol 177 mg/dl (50-199); Total Protein 6.7 g/dl (6.3-8.2); Triglyceride 135 mg/dl (10-149); Very Low Density Lipoprotein 27 mg/dl (0-30); eGFR > 60.00
[2024-06-29 09:47] LABS: Free T4 1.15 ng/dl (0.78-2.19)
[2024-06-29 09:55] LABS: Glycohemoglobin (HgbA1c) 6.5 % (4.0-5.6)
[2024-06-29 10:01] LABS: PSA, Total - Screen 2.55 ng/ml (0.0-4.0); TSH 3.29 uIU/ml (0.47-4.68)
[2024-06-29 11:01] LABS: Lithium 0.8 mmol/L (0.6-1.2)
[2024-06-29 11:44] LABS: Microalbumin, Random Urine 0.9 mg/dl (0.6-1.7)
== END ==
LOC: REG 07:48
PROVIDERS: ATTENDING PHYSICIAN Nurse Practitioner Psychiatric/Mental Health; FAMILY PHYSICIAN Physician Assistant
DX: E11.42 Type 2 diabetes mellitus with diabetic polyneuropathy (principal); G47.33 Obstructive sleep apnea (adult) (pediatric); E78.5 Hyperlipidemia, unspecified; F41.8 Other specified anxiety disorders; Z13.29 Encounter for screening for other suspected endocrine disorder; Z12.5 Encounter for screening for malignant neoplasm of prostate; F39 Unspecified mood [affective] disorder
CPT/HCPCS: 36415; 80053; 80061; 80178; 82043; 83036; 84439; 84443; 85025; G0103

== ENCOUNTER 2024-10-03 07:58 | Day surgery (SDC) | payer BC, SELFPAY ==
[2024-09-19 08:58] VITALS: BMI 27.3
[2024-09-19 09:37] LABS: ALT (SGPT) 27 U/L (0-50); AST (SGOT) 19 U/L (17-59); Albumin 4.9 g/dl (3.5-5.0); Alkaline Phosphatase 98 U/L (38-126); Blood Urea Nitrogen 17 mg/dl (9-20); Calcium 10.0 mg/dl (8.4-10.2); Carbon Dioxide 22 mmol/L (22-30); Chloride 106 mmol/L (98-107); Estimated Creatinine Clearance 95 ml/min; Glucose 306 mg/dl (70-99); Magnesium 1.9 mg/dl (1.6-2.3); Potassium 4.4 mmol/L (3.5-5.1); Sodium 137 mmol/L (135-145); Total Protein 7.5 g/dl (6.3-8.2); eGFR > 60.00
[2024-09-19 09:40] LABS: Hematocrit 43.4 % (39.0-52.0); Hemoglobin 14.7 g/dL (13.0-18.0); Mean Corp Hgb Conc. 33.9 g/dL (33.0-37.0); Mean Corpuscular Volume 91.0 fL (80.0-94.0); Nucleated Red Blood Cells % 0 % (-); Platelet Count 227 10^3/uL (130-400); Red Cell Dist. Width 14.1 % (11.5-14.5)
[2024-09-19 09:46] LABS: INR 0.93; PT 13.0 Sec (11.4-14.6)
[2024-10-03] VITALS (16 sets, daily range): BP systolic 125–147; BP diastolic 60–76; BMI 26.9
[2024-10-03 09:11] LABS: Glucose - Point of Care 133 mg/dl (70-99)
[2024-10-03 11:35] LABS: ACT-LR - POC 274 Seconds (116-155)
[2024-10-03 11:55] LABS: ACT-LR - POC 276 Seconds (116-155)
[2024-10-03] MEDS: ANESTHETIC LOZENGE 1 LOZENGE PO (12:59)
--- NOTE | 2024-10-03 15:58 | W.PN.UPDATE ---
Update Note
Progress Note Update
64 yo WM s/p PVI (same day). He denies cp, sob, ari diet, EKG SR RBBB, R fem site c/d/i, no HT, soft. He will resume Eliquis tonight and continue metoprolol. Activity restrictions reviewed. He will f/u Dr. Vogel in 3 mo. He is for dc/ home after 5p
if groin stable and voiding.
== END 2024-10-03 17:05 | disposition home or self-care (01) ==
LOC: CATH 07:58
PROVIDERS: ATTENDING PHYSICIAN Internal Medicine Cardiovascular Disease; FAMILY PHYSICIAN Physician Assistant; REFERRING PHYSICIAN Nuclear Medicine Nuclear Cardiology
DX: I48.0 Paroxysmal atrial fibrillation (principal); I10 Essential (primary) hypertension; E11.42 Type 2 diabetes mellitus with diabetic polyneuropathy; Z79.84 Long term (current) use of oral hypoglycemic drugs; J45.909 Unspecified asthma, uncomplicated; G61.81 Chronic inflammatory demyelinating polyneuritis; F41.9 Anxiety disorder, unspecified; F32.A Depression, unspecified; M48.00 Spinal stenosis, site unspecified; Z79.899 Other long term (current) drug therapy; G47.33 Obstructive sleep apnea (adult) (pediatric); M19.90 Unspecified osteoarthritis, unspecified site; G47.00 Insomnia, unspecified; N40.0 Benign prostatic hyperplasia without lower urinary tract symptoms; Z96.652 Presence of left artificial knee joint; Z79.01 Long term (current) use of anticoagulants; Z88.5 Allergy status to narcotic agent; Z88.8 Allergy status to other drugs, medicaments and biological substances; Z87.891 Personal history of nicotine dependence
CPT/HCPCS: C1732; C1894; C1769; C1730; C1892; 36415; 75572; 80053; 82962; 83735; 85025; 85347; 85610; 86850; 86900; 86901; 93005; 93656; 93657; C1733; C1766; Q9967

== ENCOUNTER → 2025-02-12 14:09 | Outpatient (REF) | payer BC, SELFPAY | LOC: REG 14:09 | PROVIDERS: ATTENDING PHYSICIAN Psychiatry & Neurology Neurology; FAMILY PHYSICIAN Physician Assistant | DX: G61.81 Chronic inflammatory demyelinating polyneuritis (principal) | CPT/HCPCS: 36415 ==

== ENCOUNTER 2025-02-20 05:47 | Day surgery (SDC) | payer BC, SELFPAY ==
--- NOTE | 2024-10-03 14:46 | ITS.CL.ABL ---
Gas Station Cashier - Ablation
Ablation
Procedure Report:
ELECTROPHYSIOLOGIC STUDY AND POSSIBLE ABLATION
DATE: 10/03/24
Primary Care Provider: Dr Betsy Curry
Primary Energy Trader: Dr Filemon Vogel
INDICATION:
Symptomatic Atrial Fibrillation.
Paroxysmal
HISTORY: See H and P.
Symptomatic AF, poorly controlled with attempted medical therapy
HAS-BLED: 1
Age
CHADSVASc: 3
age, hypertension, and diabetes.
PRESENTING RHYTHM: SR
HISTORY: See H and P.
Symptomatic AF, poorly controlled with attempted medical therapy.
ANTICOAGULATION: Apixaban 5 mg twice daily
'TIME-OUT': called and confirmed.
SEDATION/ANESTHESIA: provided via the anesthesia department using general anesthesia.
PROCEDURE:
Ultrasound Guidance with real-time visualization of needle insertion and vessel patency performed by tx for femoral venous Vascular Access.
Under real-time US guidance, the needle was advanced with negative pressure into the vein. The needle was seen entering the vessel lumen with a good return of dark red flow, the syringe was removed, non-pulsatile, dark red blood low was noted and
the wire was passed without difficulty, then the needle was removed. US confirmed the wire was in the vein, not going into an artery,
Images were taken and saved for the patient's permanent record. Imaging findings typical femoral venous anatomy. Direct visualization of needle puncture into the femoral vein was observed and recorded.
A decapolar CS catheter was placed within the CS for mapping and pacing.
The intracardiac ultrasound catheter was positioned in the RA for continuous intracardiac ultrasound imaging.
Heparin bolus and infusion to target ACT at 300 -350 seconds was administered. Transseptal puncture was performed. This entailed advancing a sheath with dilator into the superior vena cava and withdrawing both (monitoring intracardiac ultrasound,
fluoroscopy and tip pressure) with the tip oriented toward the atrial septum. The fossa ovalis was engaged (indicated by sudden displacement of the sheath tip as well as tenting of the fossa seen on intracardiac ultrasound).
The Farapulse transseptal system was used. Left atrial catheter position was confirmed by echocardiographic imaging and fluoroscopy followed by RF delivery using the Gnammo system resulting in successful LA access with pressure monitoring
demonstrating LA pressure waveforms (LA mean pressure [ ] mm Hg). The sheath was advanced over the dilator and positioned in the left atrium.
The Linebacker Grid multipolar mapping catheter was initially positioned through the transseptal sheath for high density mapping.
Geometry and voltage mapping was performed using the Etienne multipolar grid catheter. Ensite-X was utilized for three-dimensional electroanatomical mapping.
A 3-D map was created using Ensite-X in Voxel mode. A 3-D reconstructed CT image was compared to the 3-D Navex map to assist in anatomic evaluation, mapping and ablation.
The FPSI PFA catheter and system was used for cardiac ablation. Catheter positioning was guided and confirmed using both I.C.E. and fluoroscopy.
Ablation strategy included PVI as well as mapping for extra PV contributors to atrial fibrillation which would also be targeted if present.
High density electroanatomical three-dimensional mapping demonstrated LSPV, LIPV, RSPV, RIPV.
After accomplishing pulmonary venous isolation, mapping identified additional areas likely to be extra PV contributors to atrial fibrillation. These areas demonstrated patchy low voltage as well as complex fractionated electrograms. These areas can
be sites for the formation of rotors which can drive and maintain atrial fibrillation. These areas are known to be significant contributors to initiation and perpetuation of atrial fibrillation.
Additional energy applications/additional ablation sets targeted extra PV contributors to atrial fibrillation.
Targets for additional PFA ablation included:
LA posterior wall targeted with pulsed electric field energy isolating the posterior wall of the left atrium
This eliminated the extra PV contributors to atrial fibrillation.
Programmed electrostimulation including burst atrial pacing as well the delivery of decremental extrastimuli down to atrial effective refractory period and no sustained arrhythmias could be induced.
I.C.E. :
Pre-Ablation Post-Ablation
LVEF: 55 % 55 %
WMA: 55 55
Pericardial effusion: none none
COMPLICATIONS:
None
SUMMARY:
- Mapping and ablation to isolate the PVs resulting in electrical isolation of the pulmonary veins
- Additional AF ablation sets X 1 after PVI (LA posterior wall) resulting in elimination of the targeted extra PV contributors to atrial fibrillation.
- 3-D Electroanatomical Mapping
- Intracardiac Ultrasound
- Ultrasound guidance for vascular access
Post ablation, I discussed today's findings and results with the patient's Staci.
RECOMMENDATIONS:
- Observe in monitored bed.
- Maintain oral anticoagulation.
- Office visit with Filemon Vogel is scheduled for December 06, 2024
Copy to:
Dr Betsy Curry
Dr Filemon Vogel
--- NOTE | 2024-11-13 10:53 | CM ---
Addendum entered by Marleni Contreras RN 11/15/24 13:53:
Demographics: confirmed
Living situation: with , independent
Support Person Post Operatively:
History of
VN: not currently on service
SNF:
Outpatient: [facility]
Has patient purchased required equipment: yes
PCP: Antoinette
Pharmacy: [facility]
Post Operative Discharge Plan: Home with ON [facility] OF [facility] and then transition to outpatient PT
Original Note:
Cm left message for orthopedic [place].
[2024-12-05 14:02] VITALS: BMI 26.1
[2024-12-05 14:46] LABS: Hematocrit 44.6 % (39.0-52.0); Hemoglobin 14.9 g/dL (13.0-18.0); Mean Corp Hgb Conc. 33.4 g/dL (33.0-37.0); Mean Corpuscular Volume 91.0 fL (80.0-94.0); Platelet Count 200 10^3/uL (130-400); Red Cell Dist. Width 13.0 % (11.5-14.5)
[2024-12-05 15:00] VITALS: BMI 26.1
[2024-12-05 15:00] LABS: ALT (SGPT) 28 U/L (0-50); AST (SGOT) 24 U/L (17-59); Albumin 4.7 g/dl (3.5-5.0); Alkaline Phosphatase 92 U/L (38-126); Blood Urea Nitrogen 21 mg/dl (9-20); Calcium 9.5 mg/dl (8.4-10.2); Carbon Dioxide 26 mmol/L (22-30); Chloride 105 mmol/L (98-107); Estimated Creatinine Clearance 73 ml/min; Glucose 162 mg/dl (70-99); Potassium 4.7 mmol/L (3.5-5.1); Sodium 138 mmol/L (135-145); Total Protein 7.3 g/dl (6.3-8.2); eGFR > 60.00
--- NOTE | 2024-12-05 16:07 | VNURNOTE ---
Addendum entered by Vi Menezes RN 12/18/24 11:54:
Noted that SDS re-scheduled to Feb 20. [facility] Intake updated.
Original Note:
Chart reviewed. Pt scheduled for SDS R TKA 12/19. Call placed to discuss [facility] protocol. No answer, left message.
[facility] referral placed in [facility].
[2024-12-06 11:28] LABS: Glycohemoglobin (HgbA1c) 8.5 % (4.0-5.6)
[2025-02-04 08:48] LABS: Hematocrit 43.7 % (39.0-52.0); Hemoglobin 14.6 g/dL (13.0-18.0); Mean Corp Hgb Conc. 33.4 g/dL (33.0-37.0); Mean Corpuscular Volume 91.0 fL (80.0-94.0); Platelet Count 215 10^3/uL (130-400); Red Cell Dist. Width 14.0 % (11.5-14.5)
[2025-02-04 09:04] LABS: ALT (SGPT) 29 U/L (0-50); AST (SGOT) 27 U/L (17-59); Albumin 4.5 g/dl (3.5-5.0); Alkaline Phosphatase 65 U/L (38-126); Blood Urea Nitrogen 19 mg/dl (9-20); Calcium 9.5 mg/dl (8.4-10.2); Carbon Dioxide 31 mmol/L (22-30); Chloride 105 mmol/L (98-107); Estimated Creatinine Clearance 80 ml/min; Glucose 104 mg/dl (70-99); HDL Cholesterol 40 mg/dl; LDL Cholesterol, Calculated 131 mg/dl; Potassium 4.4 mmol/L (3.5-5.1); Sodium 141 mmol/L (135-145); Total Protein 7.2 g/dl (6.3-8.2); Very Low Density Lipoprotein 23 mg/dl (0-30); eGFR > 60.00
[2025-02-04 09:26] LABS: Microalbumin, Random Urine 1.3 mg/dl (0.6-1.7)
[2025-02-04 11:02] LABS: Glycohemoglobin (HgbA1c) 6.5 % (4.0-5.9)
[2025-02-04 14:20] VITALS: BMI 26.5
[2025-02-05 16:18] VITALS: BMI 26.5
[2025-02-20] VITALS (17 sets, daily range): BP systolic 126–151; BP diastolic 54–81; BMI 26.5
[2025-02-20] MEDS: CELEBREX 200 MG PO (06:25)
[2025-02-20] MEDS: TYLENOL 650 MG PO (06:25)
[2025-02-20 06:43] LABS: Glucose - Point of Care 118 mg/dl (70-99)
[2025-02-20] MEDS: DILAUDID 0.5 MG IV ×4 (08:19→09:20)
--- NOTE | 2025-02-20 08:22 | W.DS.TRANS ---
DC Summary - [employer] Child[employer]
-
Discharge Instructions:
Discharge Diagnosis/Procedures R knee OA s/p R TKA w/ Dr Mejias 02/20/25
Diet Diabetic, Carb Controlled
Activity With Walker
Driving Restrictions No driving
Bathing Restrictions OK to Shower
Other Services PT,VN
Wound Care Dressing to be removed 1 week post-surgery.
Instructions:
Stand-Alone Forms: SDS Total Hip and Knee D/C
Changes to Home Medications: Yes
Discharge Medications:
DC Medications w/original date entered in [address]
cyanocobalamin (vitamin B-12) 1,000 mcg/mL injection solution 1,000 mcg SC QMONTH Supplement 09/16/23
clonazepam 0.5 mg tablet 0.5 mg PO TID 10/03/24
lamotrigine 300 mg tablet,extended release 24 hr (Lamictal XR) 200 mg PO DAILY 10/03/24
metoprolol succinate 25 mg tablet,extended release 24 hr 25 mg PO HS 10/03/24
pantoprazole 40 mg tablet,delayed release (Protonix) 40 mg PO HS 10/03/24
albuterol sulfate 90 mcg/actuation aerosol inhaler 2 puff inhalation QID PRN sob 12/04/24
mupirocin 2 % topical ointment 1 applic topical BID infection prevention #1 tube 12/04/24
tirzepatide 2.5 mg/0.5 mL subcutaneous pen injector (Mounjaro) 2.5 mg SC UGALDE 12/04/24
Saccharomyces boulardii 250 mg capsule (Florastor) 250 mg PO BID probiotic #14 caps 12/05/24
cefadroxil 500 mg capsule 500 mg PO BID infection prevention #14 caps 12/05/24
famotidine 20 mg tablet 20 mg PO HS GI prophylaxis #30 tabs 12/05/24
gabapentin 300 mg capsule 300 mg PO HS sleep/pain #10 caps 12/05/24
ondansetron 4 mg disintegrating tablet 4 mg PO Q6H PRN n/v #20 tabs 12/05/24
tamsulosin 0.4 mg capsule 0.4 mg PO HS #7 caps 12/05/24
fluticasone propionate 50 mcg/actuation nasal spray,suspension 2 spray intranasal DAILYPRN PRN nasal congestion 02/04/25
meloxicam 15 mg tablet 15 mg PO DAILY #14 tabs 02/04/25
tramadol 50 mg tablet 50 - 100 mg (1 - 2 x 50 mg) PO Q6H PRN moderate-severe pain #30 tabs 02/04/25
acetaminophen 500 mg tablet (Tylenol Extra Strength) 1,000 mg (2 x 500 mg) PO QID pain #0 tabs 02/20/25
aspirin 325 mg tablet 325 mg PO DAILY blood clot prevention #1 tab 02/20/25
docusate sodium 100 mg capsule (Colace) 100 mg PO BID stool softner #1 cap 02/20/25
losartan 25 mg tablet 25 mg PO HS Blood Pressure #0 tabs 02/20/25
magnesium hydroxide 400 mg/5 mL oral suspension (Milk of Magnesia) 30 ml PO HS PRN constipation #1 mL 02/20/25
sennosides 8.6 mg tablet (Senokot) 17.2 mg (2 x 8.6 mg) PO BID laxative #2 tabs 02/20/25
Home Medication Changes
mupirocin 2 % topical ointment 1 applic topical BID infection prevention #1 tube 12/04/24
tirzepatide 2.5 mg/0.5 mL subcutaneous pen injector (Mounjaro) 2.5 mg SC UGALDE 12/04/24
Saccharomyces boulardii 250 mg capsule (Florastor) 250 mg PO BID probiotic #14 caps 12/05/24
cefadroxil 500 mg capsule 500 mg PO BID infection prevention #14 caps 12/05/24
famotidine 20 mg tablet 20 mg PO HS GI prophylaxis #30 tabs 12/05/24
gabapentin 300 mg capsule 300 mg PO HS sleep/pain #10 caps 12/05/24
ondansetron 4 mg disintegrating tablet 4 mg PO Q6H PRN n/v #20 tabs 12/05/24
tamsulosin 0.4 mg capsule 0.4 mg PO HS #7 caps 12/05/24
fluticasone propionate 50 mcg/actuation nasal spray,suspension 2 spray intranasal DAILYPRN PRN nasal congestion 02/04/25
meloxicam 15 mg tablet 15 mg PO DAILY #14 tabs 02/04/25
tramadol 50 mg tablet 50 - 100 mg (1 - 2 x 50 mg) PO Q6H PRN moderate-severe pain #30 tabs 02/04/25
acetaminophen 500 mg tablet (Tylenol Extra Strength) 1,000 mg (2 x 500 mg) PO QID pain #0 tabs 02/20/25
aspirin 325 mg tablet 325 mg PO DAILY blood clot prevention #1 tab 02/20/25
docusate sodium 100 mg capsule (Colace) 100 mg PO BID stool softner #1 cap 02/20/25
losartan 25 mg tablet 25 mg PO HS Blood Pressure #0 tabs 02/20/25
magnesium hydroxide 400 mg/5 mL oral suspension (Milk of Magnesia) 30 ml PO HS PRN constipation #1 mL 02/20/25
sennosides 8.6 mg tablet (Senokot) 17.2 mg (2 x 8.6 mg) PO BID laxative #2 tabs 02/20/25
Pending Results: No
[2025-02-20 08:36] LABS: Glucose - Point of Care 180 mg/dl (70-99)
[2025-02-20] MEDS: DILAUDID 4 MG PO (11:55)
[2025-02-20] MEDS: ANCEF 5 IV (11:57)
--- NOTE | 2025-02-20 12:38 | PTCARENOTE ---
Patient stood to void but could not void due to pain. Patient put back to bed. Patient currently trying to void into the urinal. Will monitor patient.
--- NOTE | 2025-02-20 14:14 | PTCARENOTE ---
Per Dr. Mejias if patient can not void by 1450 then patient should be straight cathed and then discharged. Dr. Mejias aware that patient was unable to void and was bladder scanned for approximately 400 ml of urine. Report passed onto Zeny BONILLA at
1415. Will monitor patient.
== END 2025-02-20 14:45 | disposition home or self-care (01) ==
LOC: SDS 05:47
PROVIDERS: ATTENDING PHYSICIAN Orthopaedic Surgery; FAMILY PHYSICIAN Physician Assistant; OTHER PHYSICIAN Nurse Practitioner Family; OTHER PHYSICIAN Physician Assistant Medical; REFERRING PHYSICIAN Nuclear Medicine Nuclear Cardiology
DX: M17.11 Unilateral primary osteoarthritis, right knee (principal)
CPT/HCPCS: 27447; 36680; C1776; C1713; 36415; 73560; 80053; 80061; 82043; 82570; 82962; 83036; 84443; 85027; 87070; 97162

== ENCOUNTER 2025-03-12 07:43 | Outpatient (RCR) | payer BC, SELFPAY | END 2025-03-12 23:59 | disposition home or self-care (01) | LOC: RPT 07:43 | PROVIDERS: ATTENDING PHYSICIAN Orthopaedic Surgery; FAMILY PHYSICIAN Physician Assistant | DX: Z47.1 Aftercare following joint replacement surgery (principal); Z73.6 Limitation of activities due to disability; M62.81 Muscle weakness (generalized); M25.561 Pain in right knee; R26.89 Other abnormalities of gait and mobility; Z96.653 Presence of artificial knee joint, bilateral; Z98.1 Arthrodesis status | CPT/HCPCS: 97010; 97110; 97116; 97140; 97162; 97530 ==